=== PATIENT | female | born 1960 | race Caucasian/White ===

== ENCOUNTER 2024-05-25 06:00 | Day surgery (SDC) | payer MEDICARE, MEDICAID ==
[2024-05-25] MEDS ORDERED: Propofol 200 MG/20 ML SDV ONE ×4 (06:12→08:18)
[2024-05-25] MEDS ORDERED: Midazolam 1 MG/ML 2 ML SDV ONE (06:12)
[2024-05-25] MEDS ORDERED: Lidocaine 1% 5 ML VIAL ONE (06:12)
[2024-05-25] MEDS ORDERED: fentaNYL 100 MCG/2 ML SDV ONE ×2 (06:12)
[2024-05-25] MEDS: Lactated Ringers 1,000 ML IV SCH (06:20)
[2024-05-25] MEDS ORDERED: HYDROmorphone 0.5 MG/0.5 ML Syringe IVPUSH PRN (06:40)
[2024-05-25] MEDS ORDERED: fentaNYL 100 MCG/2 ML SDV IVPUSH PRN (06:40)
[2024-05-25] MEDS ORDERED: Ondansetron 4 MG/2 ML SDV IVPUSH PRN (06:40)
[2024-05-25] MEDS ORDERED: Sodium Chloride 0.9% 10 ML Syringe FLUSH PRN (06:49)
[2024-05-25] MEDS ORDERED: Lactated Ringers 1,000 ML ONE ×2 (07:26→08:44)
[2024-05-25] MEDS ORDERED: Phenylephrine 1% 10 MG/ML SDV ONE (07:26)
[2024-05-25] MEDS ORDERED: ceFAZolin 2 GM Vial ONE (07:41)
[2024-05-25] MEDS ORDERED: Dexamethasone 4 MG/ML 5 ML MDV ONE (07:45)
[2024-05-25] MEDS ORDERED: Ondansetron 4 MG/2 ML SDV ONE (07:45)
[2024-05-25] MEDS ORDERED: ePHEDrine 50 MG/ML SDV ONE (07:45)
[2024-05-25] MEDS ORDERED: Sodium Chloride 0.9% 10 ML Syringe FLUSH SCH (09:00)
[2024-05-25] MEDS ORDERED: Ketorolac 30 MG/ML SDV ONE (09:07)
[2024-05-25] MEDS: Tranexamic Acid 1,000 MG/10 ML Vial ONE (09:30)
[2024-05-25] MEDS: Vancomycin 1 GM SDV ONE (09:31)
[2024-05-25] MEDS: Morphine 8 MG, EPINEPHrine 0.3 MG, Cefuroxime 750 MG, Ketorolac 30 MG, Sodium Chloride ... PRN (09:32)
[2024-05-25] MEDS: Acetaminophen/HYDROcodone 325-5 MG Tab PO PRN (10:30)
== END 2024-05-25 14:05 | disposition home or self-care (01) ==
LOC: JD.SDS 06:00
PROVIDERS: ATTEND Orthopaedic Surgery
DX: M16.11 Unilateral primary osteoarthritis, right hip (principal); R73.03 Prediabetes; I10 Essential (primary) hypertension; E78.00 Pure hypercholesterolemia, unspecified; J44.9 Chronic obstructive pulmonary disease, unspecified; E03.9 Hypothyroidism, unspecified; R00.2 Palpitations; N95.9 Unspecified menopausal and perimenopausal disorder; Z79.890 Hormone replacement therapy; Z79.899 Other long term (current) drug therapy; Z88.8 Allergy status to other drugs, medicaments and biological substances; Z87.891 Personal history of nicotine dependence
CPT/HCPCS: 0055T; 27130; 36415; 73501; 86850; 86900; 86901; 97110; 97161; A9270; C1713; C1776; J0171; J0690; J0697; J1100; J1885; J2250; J2270; J2371; J2405; J2704; J3010; J3370; J3490; J7120; 01214